=== PATIENT | female | born 1980 ===

== ENCOUNTER 2018-01-06 16:24 | Emergency (ER) | payer MEDICAID ==
[2018-01-06 17:16] VITALS: O2SAT 100
[2018-01-06] MEDS ORDERED: Sodium Chloride 0.9% 1,000 ML IV ONE (17:42)
[2018-01-06] MEDS ORDERED: Sodium Chloride 0.9% 1,000 ML ONE (17:55)
--- NOTE | 2018-01-06 18:21 | C.PDOC ---
History Of Present Illness 37 year old female presents to the ED for evaluation of right flank pain. Patient reports history of kidney stones and states she had a lithotripsy and stent placement performed by a urologist from [place]. Patient states she normally goes to [facility], where she recently had imaging performed. Her pain was exacerbated today, which prompted this ED visit. Patient denies fever, chills, nausea, vomiting, dysuria, vaginal bleeding/ discharge. Time Seen by Provider: 01/06/18 17:35 Chief Complaint (Nursing): Back Pain History Per: Patient History/Exam Limitations: no limitations Onset/Duration Of Symptoms: Hrs Current Symptoms Are (Timing): Still Present Quality Of Discomfort: "Pain" Additional History Per: Patient Past Medical History Reviewed: Historical Data, Nursing Documentation, Vital Signs Vital Signs: Last Vital Signs Temp 97.6 F 01/06/18 17:14 Pulse 98 H 01/06/18 17:14 Resp 18 01/06/18 17:14 BP 160/109 H 01/06/18 17:14 Pulse Ox 100 01/06/18 18:30 - Medical History PMH: HTN, Kidney Stones Surgical History: No Surg Hx Family History: States: Unknown Family Hx - Social History Hx Alcohol Use: No Hx Substance Use: No - Immunization History Hx Tetanus Toxoid Vaccination: Yes Hx Influenza Vaccination: Yes Hx Pneumococcal Vaccination: Yes Review Of Systems Constitutional: Negative for: Fever, Chills Gastrointestinal: Negative for: Nausea, Vomiting Genitourinary: Negative for: Dysuria, Vaginal Discharge, Vaginal Bleeding Musculoskeletal: Positive for: Other (right flank pain ) Physical Exam - Physical Exam Appears: Non-toxic, No Acute Distress Skin: Normal Color, Warm, Dry Head: Atraumatic, Normacephalic Eye(s): bilateral: Normal Inspection Oral Mucosa: Moist Neck: Supple Chest: Symmetrical, No Deformity, No Tenderness Cardiovascular: Rhythm Regular, No Murmur Respiratory: Normal Breath Sounds, No Rales, No Rhonchi, No Wheezing Gastrointestinal/Abdominal: Soft, No Tenderness, No Guarding, No Rebound Back: CVA Tenderness (right-sided) Extremity: Normal ROM, Capillary Refill (less than 2 seconds ) Neurological/Psych: Oriented x3, Normal Speech, Normal Cognition ED Course And Treatment - Laboratory Results Result Diagrams: 01/06/18 18:15 01/06/18 18:15 O2 Sat by Pulse Oximetry: 100 (on RA) Pulse Ox Interpretation: Normal Medical Decision Making Medical Decision Making: Assessment: right flank pain Plan: * Bloodwork * Urinalysis * Renal US * Toradol IVP * IV Fluids * reassess and disposition Progress: Bloodwork, UA, Renal US ordered. Toradol IVP and IV Fluids administered. Disposition - Disposition Disposition Time: 19:00 Condition: FAIR Forms: [facility] (Azeri) - Clinical Impression Clinical Impression: Renal colic on right side - Scribe Statement The provider has reviewed the documentation as recorded by the Scribe (Emmie Jensen) Provider Attestation: All medical record entries made by the Scribe were at my direction and personally dictated by me. I have reviewed the chart and agree that the record accurately reflects my personal performance of the history, physical exam, medical decision making, and the department course for this patient. I have also personally directed, reviewed, and agree with the discharge instructions and disposition. Physician Patient Turnover Patient Signed Over To: Cristi Ambrosio Handoff Comments: pending renal ultrasound, reevaluation and disposition
[2018-01-06 18:22] LABS: BASO # 0.1 K/uL (0.0-0.2); BASO % 0.6 % (0.0-2.0); EOS # 0.1 K/uL (0.0-0.7); HEMOGLOBIN 12.2 g/dL (11.0-16.0); LYMPH # 2.6 K/uL (1.0-4.3); LYMPH % 26.4 % (20.0-40.0); MEAN CELL VOLUME 83.3 fL (81.0-99.0); MEAN CORPUSCULAR HEMOGLOBIN 27.4 pg (27.0-31.0); MEAN CORPUSCULAR HGB CONC 32.9 g/dL (33.0-37.0); MEAN PLATELET VOLUME 7.8 fL (7.2-11.7); MONO # 0.8 K/uL (0.0-0.8); MONO % 8.1 % (0.0-10.0); NEUT # 6.3 K/uL (1.8-7.0); NEUT % 63.9 % (50.0-75.0); RBC 4.47 Mil/uL (3.80-5.20); WHITE BLOOD COUNT 9.9 K/uL (4.8-10.8)
[2018-01-06 18:23] LABS: SQUAMOUS EPITHIAL 1 /hpf (0-5); URINE BACTERIA RARE (<OCC); URINE BILIRUBIN NEGATIVE (NEGATIVE); URINE BLOOD NEGATIVE (NEGATIVE); URINE CLARITY Clear (Clear); URINE COLOR Amber (YELLOW); URINE GLUCOSE (UA) NORMAL (Normal); URINE LEUKOCYTE ESTERASE NEG Leu/uL (Negative); URINE PROTEIN NEGATIVE (NEGATIVE)
[2018-01-06 18:31] LABS: ALB/GLOB RATIO 1.1 (1.0-2.1); ALBUMIN 4.4 g/dL (3.5-5.0); ALT/SGPT 15 U/L (9-52); AST/SGOT 20 U/L (14-36); BLOOD UREA NITROGEN 15 mg/dL (7-17); CALCIUM 9.2 mg/dl (8.6-10.4); GFR AFRICAN-AMERICAN > 60; GFR NON-AFRICAN AMERICAN > 60; LIPASE 128 U/L (23-300)
[2018-01-06] MEDS ORDERED: Lidocaine 80 MG in Sodium Chloride 0.9% 100 ML IV STA (18:40)
[2018-01-06] MEDS ORDERED: Morphine 4 MG/ML VIAL ONE (20:37)
--- NOTE | 2018-01-06 21:02 | US ---
EXAM: US Retroperitoneal Complete, Renal EXAM DATE/TIME: 01/06/2018 5:41 PM CLINICAL HISTORY: 37 years old, female; Pain; Other: Rt flank pain; Prior surgery; Surgery date: 6+ months; Surgery type: H/o three lithotripsy; Additional info: Right flank pain, assess for renal stone TECHNIQUE: Real-time ultrasound of the retroperitoneum (complete) with image documentation. COMPARISON: No relevant prior studies available. FINDINGS: Right kidney: Demonstrates mild to moderate hydronephrosis, which persists on the post void images. The right proximal ureter is seen, and also appears mildly dilated. . Contains multiple nonobstructing stones. At least 3 are seen, the largest of which measures 6 x 5 mm. Otherwise within normal limits in appearance. Measures 11.1 cm in length. Left kidney: Contains multiple nonobstructing stones, the largest of which measures 6 x 5 mm. Otherwise within normal limits in appearance. Measures 10.9 cm in length. No evidence of hydronephrosis. Bladder: Incompletely distended, which somewhat limits evaluation. Grossly normal in appearance. Aorta: Visualized portions appear grossly normal. IMPRESSION: Right hydroureteronephrosis, cause not identified. Multiple, bilateral nonobstructing renal stones. See above for remaining findings.
[2018-01-06 21:34] VITALS: BP 148/92; PULSE 76; RESP 16; TEMP 97.8
== END 2018-01-06 21:34 | disposition home or self-care (01) ==
LOC: C.ER 16:24
DX: N13.2 Hydronephrosis with renal and ureteral calculous obstruction (principal); Z87.442 Personal history of urinary calculi
CPT/HCPCS: 76770; 80053; 81001; 83690; 85025; 87086; 96361; 96374; 96375; 99285; J1885; J2001; J2270; J7040

== ENCOUNTER 2018-02-02 13:21 | Emergency (ER) | payer MEDICAID ==
[2018-02-02 13:28] VITALS: O2SAT 99
[2018-02-02 14:28] LABS: HCG,QUALITATIVE URINE NEGATIVE (NEGATIVE)
[2018-02-02 14:35] LABS: SQUAMOUS EPITHIAL 34 /hpf (0-5); URINE AMORPHOUS SEDIMENT RARE /ul (<OCC); URINE BACTERIA OCC (<OCC); URINE BILIRUBIN NEGATIVE (NEGATIVE); URINE BLOOD NEGATIVE (NEGATIVE); URINE CLARITY Clear (Clear); URINE COLOR Amber (YELLOW); URINE GLUCOSE (UA) NORMAL (Normal); URINE LEUKOCYTE ESTERASE NEG Leu/uL (Negative); URINE PROTEIN NEGATIVE (NEGATIVE)
--- NOTE | 2018-02-02 14:42 | C.PDOC ---
History Of Present Illness 37-year-old female, PMHx includes UTI and kidney stones, presents to the emergency department with complaints of dysuria and urinary frequency for the past three days. Patient was taking over the counter AZO with minimal relief, prompting visit. Patient denies fever, nausea/vomiting, vaginal bleeding/ discharge, back pain or any other associated symptoms. No other complaints at this time. Time Seen by Provider: 02/02/18 13:43 Chief Complaint (Nursing): Female Genitourinary History Per: Patient History/Exam Limitations: no limitations Onset/Duration Of Symptoms: Days Past Medical History Reviewed: Historical Data, Nursing Documentation, Vital Signs Vital Signs: Last Vital Signs Temp 98.2 F 02/02/18 14:57 Pulse 90 02/02/18 14:57 Resp 20 02/02/18 14:57 BP 141/99 H 02/02/18 14:57 Pulse Ox 99 02/02/18 15:02 - Medical History PMH: HTN, Kidney Stones Family History: States: No Known Family Hx - Social History Hx Alcohol Use: No Hx Substance Use: No - Immunization History Hx Tetanus Toxoid Vaccination: Yes Hx Influenza Vaccination: Yes Hx Pneumococcal Vaccination: Yes Review Of Systems Constitutional: Negative for: Fever Gastrointestinal: Negative for: Nausea, Vomiting Genitourinary: Positive for: Dysuria, Frequency Physical Exam - Physical Exam Appears: Non-toxic, No Acute Distress Skin: Normal Color, Warm, Dry, No Rash Head: Normacephalic Eye(s): bilateral: PERRL Nose: Normal Oral Mucosa: Moist Lips: Normal Appearing Neck: Normal ROM Cardiovascular: Rhythm Regular, No Murmur Respiratory: Normal Breath Sounds, No Accessory Muscle Use Gastrointestinal/Abdominal: Soft, Tenderness (suprapubic), No Guarding, No Rebound Extremity: Normal ROM, No Deformity, No Swelling Neurological/Psych: Oriented x3, Normal Speech ED Course And Treatment O2 Sat by Pulse Oximetry: 99 (RA) Pulse Ox Interpretation: Normal Medical Decision Making Medical Decision Making: Plan: * Cipro, Ultram * Urine Culture * UA, HCG UA shows nitrates. Will treat with Cipro. Urine culture sent to lab Patient feels comfortable going home and will be discharged. Patient given follow up instructions. Instructed to return to ER if symptoms worsen or new symptoms arise. Disposition Counseled Patient/Family Regarding: Diagnosis, Need For Followup, Rx Given - Disposition Disposition: HOME/ ROUTINE Disposition Time: 14:41 Condition: STABLE Additional Instructions: Take antibiotic twice daily and be sure to finish taking all of antibiotic. Drink plenty of fluids. If urine culture was performed, call back for results in 2-3 days for results to confirm antibiotic is treating UTI well Prescriptions: Ciprofloxacin [Cipro] 1 tab PO BID #10 tab traMADol [Ultram] 50 mg PO Q12 #6 tab Instructions: Urinary Tract Infection, Adult (DC) Forms: [facility] (Bulgarian) - POA Present On Arrival: None - Clinical Impression Clinical Impression: UTI (urinary tract infection) - Scribe Statement The provider has reviewed the documentation as recorded by the Scribe (Vickie Batista) All medical record entries made by the Scribe were at my direction and personally dictated by me. I have reviewed the chart and agree that the record accurately reflects my personal performance of the history, physical exam, medical decision making, and the department course for this patient. I have also personally directed, reviewed, and agree with the discharge instructions and disposition.
[2018-02-02 14:58] VITALS: BP 141/99; PULSE 90; RESP 20; TEMP 98.2
== END 2018-02-02 14:58 | disposition home or self-care (01) ==
LOC: C.ER 13:21
DX: N39.0 Urinary tract infection, site not specified (principal); I10 Essential (primary) hypertension